=== PATIENT | female | born 1985 | race Caucasian/White ===

== ENCOUNTER → 2017-01-28 | Outpatient (CLI) | payer BC | LOC: RAD 07:18 | PROVIDERS: ATTEND Specialist | DX: R51 Headache (principal) | CPT/HCPCS: 70450 ==

== ENCOUNTER 2018-01-17 19:39 | Emergency (ER) | payer BC ==
[2018-01-17 20:07] VITALS: BP 102/68
[2018-01-17] MEDS ORDERED: IBUPROFEN 800 MG TABLET PO ONE (20:08)
--- NOTE | 2018-01-17 20:17 | ER Document Report ---
HPI - HPI Patient complains to provider of: Scratchy throat fever body aches chills Onset: Yesterday Onset/Duration: Gradual Pain Level: 4 Context: 32-year-old female developed scratchy throat, fever, body aches, headache, chills, fatigue, dizziness since yesterday evening. She was exposed to influenza B. She did not get a flu shot. No runny nose or cough. No urinary frequency or urgency. No vaginal discharge. No abdominal pain. She does have some low back pain. Associated Symptoms: None Exacerbated by: Denies Relieved by: Denies Similar symptoms previously: No Recently seen / treated by doctor: No - ROS ROS below otherwise negative: Yes Systems Reviewed and Negative: Yes All other systems reviewed and negative - REPRODUCTIVE Reproductive: REPORTS: : Past Medical History - General Information source: Patient - Social History Smoking Status: Never Smoker Frequency of alcohol use: None Drug Abuse: None Lives with: Family Family History: Reviewed & Not Pertinent - Medical History Medical History: Negative Past Surgical History: Reports: Hx Gynecologic Surgery - Immunizations Immunizations up to date: Yes Hx Diphtheria, Pertussis, Tetanus Vaccination: Yes Vertical Provider Document - CONSTITUTIONAL Agree With Documented VS: Yes Exam Limitations: No Limitations - INFECTION CONTROL TRAVEL OUTSIDE OF THE [place] IN LAST 30 DAYS: No - HEENT HEENT: Pharyngeal Erythema - minimal. negative: Conjuctival Injection, Tympanic Membrane Red - NECK Neck: Supple. negative: Lymphadenopathy-Left, Lymphadenopathy-Right - RESPIRATORY Respiratory: Breath Sounds Normal, No Respiratory Distress - CARDIOVASCULAR Cardiovascular: Regular Rate, Regular Rhythm - GI/ABDOMEN Gastrointestinal: Abdomen Soft, Abdomen Tender - suprapubic, Normal Bowel Sounds - BACK Back: Normal Inspection. negative: CVA Tenderness-Right, CVA Tenderness-Left Notes: non tender - MUSCULOSKELETAL/EXTREMETIES Musculoskeletal/Extremeties: MAEW - NEURO Level of Consciousness: Awake, Alert - DERM Integumentary: Warm, Dry, No Rash Course - Re-evaluation Re-evalutation: 01/17/18 20:28 apical pulse 96 01/17/18 20:59 Rapid strep is negative, urinalysis is negative and patient still denies a cough. No travel outside the [place], she works at [employer] but is off tomorrow. 01/17/18 21:00 Discharge - Discharge Clinical Impression: Fever, Myalgia, Dizziness Condition: Good Disposition: HOME, SELF-CARE Instructions: Acetaminophen, Use of [id number] Ibuprofen ([facility]), Fever ( [facility]), Viral Syndrome ([facility]) Additional Instructions: Drink plenty of fluids Rest Work note Tylenol Motrin Return to the emergency room if symptoms worsen Forms: Return to Work Referrals: DEAN HERNADEZ MD [Primary Care Provider] - Follow up as needed
[2018-01-17 20:33] LABS: APPEARANCE,URINE CLEAR; BILIRUBIN,URINE NEGATIVE (NEGATIVE); COLOR,URINE YELLOW; GLUCOSE, URINE NEGATIVE (NEGATIVE); KETONES,URINE NEGATIVE (NEGATIVE); LEUKOCYTE ESTERASE,URINE NEGATIVE (NEGATIVE); NITRITE,URINE NEGATIVE (NEGATIVE); PROTEIN,URINE NEGATIVE (NEGATIVE); URINE SPECIFIC GRAVITY 1.005; UROBILINOGEN,URINE NEGATIVE mg/dL (<2.0)
== END 2018-01-17 21:04 | disposition home or self-care (01) ==
LOC: ER 19:39
DX: R50.9 Fever, unspecified (principal); M79.1 Myalgia; R51 Headache; R42 Dizziness and giddiness
CPT/HCPCS: 81001; 87070; 87086; 87880; 99283

== ENCOUNTER 2019-07-27 09:13 | Emergency (ER) | payer BC ==
[2019-07-27 10:19] LABS: ABSOLUTE LYMPHOCYTES (AUTO) 0.9 10^3/uL (0.5-4.7); ABSOLUTE MONOCYTES (AUTO) 0.4 10^3/uL (0.1-1.4); ABSOLUTE NEUT (AUTO) 4.7 10^3/uL (1.7-8.2); BASOPHILS % (AUTO) 0.3 % (0-2); EOSINOPHILS % (AUTO) 0.4 % (0-6); HEMATOCRIT 36.3 % (36.0-47.0); HEMOGLOBIN 12.5 g/dL (12.0-15.5); LYMPHOCYTES % (AUTO) 14.9 % (13-45); MEAN CORPUSCULAR HEMOGLOBIN 32.6 pg (27.0-33.4); MEAN CORPUSCULAR HGB CONC 34.4 g/dL (32.0-36.0); MEAN CORPUSCULAR VOLUME 95 fl (80-97); MONOCYTES % (AUTO) 5.8 % (3-13); PLATELET COUNT 161 10^3/uL (150-450); RED BLOOD COUNT 3.83 10^6/uL (3.72-5.28); RED CELL DISTRIBUTION WIDTH 12.8 % (11.5-14.0); SEGMENTED NEUTROPHILS % (AUTO) 78.6 % (42-78); TOTAL CELLS COUNTED % (AUTO) 100 %
[2019-07-27 10:27] LABS: APPEARANCE,URINE CLEAR; BILIRUBIN,URINE NEGATIVE (NEGATIVE); COLOR,URINE YELLOW; GLUCOSE, URINE NEGATIVE (NEGATIVE); KETONES,URINE NEGATIVE (NEGATIVE); LEUKOCYTE ESTERASE,URINE NEGATIVE (NEGATIVE); NITRITE,URINE NEGATIVE (NEGATIVE); PROTEIN,URINE NEGATIVE (NEGATIVE); URINE SPECIFIC GRAVITY 1.014; UROBILINOGEN,URINE NEGATIVE mg/dL (<2.0)
[2019-07-27 10:40] LABS: ACETAMINOPHEN < 10 ug/mL (10-30); ALBUMIN 4.2 g/dL (3.5-5.0); ALCOHOL < 10 mg/dL (NONE DETECTED); ALKALINE PHOSPHATASE 51 U/L (38-126); ANION GAP 8 (5-19); ASPARTATE AMINO TRANSFERASE 19 U/L (14-36); BILIRUBIN,DIRECT 0.2 mg/dL (0.0-0.4); BILIRUBIN,TOTAL 0.4 mg/dL (0.2-1.3); BLOOD UREA NITROGEN 10 mg/dL (7-20); CALCIUM 9.1 mg/dL (8.4-10.2); CARBON DIOXIDE 25 mmol/L (22-30); CHLORIDE 106 mmol/L (98-107); GLUCOSE 109 mg/dL (75-110); POTASSIUM 4.6 mmol/L (3.6-5.0); SALICYLATE < 1.0 mg/dL (2.0-20.0); TOTAL PROTEIN 7.3 g/dL (6.3-8.2)
[2019-07-27 10:45] LABS: URINE AMPHETAMINES SCREEN NEGATIVE; URINE BARBITURATES SCREEN NEGATIVE; URINE BENZODIAZEPINES SCREEN NEGATIVE; URINE COCAINE SCREEN NEGATIVE; URINE MARIJUANA (THC) SCREEN NEGATIVE; URINE METHADONE SCREEN NEGATIVE; URINE PHENCYCLIDINE SCREEN NEGATIVE
[2019-07-27] MEDS ORDERED: ACETAMINOPHEN 325 MG TABLET PO ONE ×2 (12:28→16:44)
[2019-07-27] MEDS ORDERED: CLONAZEPAM 1 MG TABLET PO PRN (14:32)
[2019-07-27] MEDS ORDERED: HALOPERIDOL 5 MG TABLET PO ONE (16:41)
--- NOTE | 2019-07-27 16:49 | ER Document Report ---
ED General - General TRAVEL OUTSIDE OF THE [place] IN LAST 30 DAYS: No - Related Data Home Medications: 1mg klonopin 4times daily. 160mg cymbalta daily <SUSIE JERNIGAN - Last Filed: 07/27/19 17:34> <KOURTNEY DESIR - Last Filed: 07/27/19 17:47> - General Chief Complaint: Psych Problem Stated Complaint: PSYCH EVAL/SUICIDAL IDEATION Time Seen by Provider: 07/27/19 12:31 Primary Care Provider: SANNA VENTURA MD [Primary Care Provider] - Follow up as needed - Related Data Allergies/Adverse Reactions: No Known Allergies Allergy (Verified 11/23/12 17:36) Past Medical History - Social History Smoking Status: Unknown if Ever Smoked Chew tobacco use (# tins/day): No Frequency of alcohol use: Occasional Drug Abuse: None Family History: Reviewed & Not Pertinent Patient has suicidal ideation: Yes Patient has homicidal ideation: No - Past Medical History Cardiac Medical History: Denies: Hx Coronary Artery Disease, Hx Heart Attack, Hx Hypertension Pulmonary Medical History: Denies: Hx Asthma, Hx Bronchitis, Hx COPD, Hx Pneumonia Neurological Medical History: Denies: Hx Cerebrovascular Accident, Hx Seizures Renal/ Medical History: Denies: Hx Peritoneal Dialysis Musculoskeletal Medical History: Denies Hx Arthritis Past Surgical History: Reports: Hx Gynecologic Surgery - Immunizations Immunizations up to date: Yes Hx Diphtheria, Pertussis, Tetanus Vaccination: Yes <SUSIE JERNIGAN - Last Filed: 07/27/19 17:34> Physical Exam - Vital signs Vitals: Temp Pulse Resp BP Pulse Ox 97.7 F 85 20 114/84 100 07/27/19 09:18 07/27/19 09:18 07/27/19 09:18 07/27/19 09:18 07/27/19 09:18 Course - Laboratory Result Diagrams: 07/27/19 09:57 07/27/19 09:57 <SUSIE JERNIGAN - Last Filed: 07/27/19 17:34> - Laboratory Result Diagrams: 07/27/19 09:57 07/27/19 09:57 <KOURTNEY DESIR - Last Filed: 07/27/19 17:47> - Vital Signs Vital signs: Temp Pulse Resp BP Pulse Ox 97.7 F 85 20 114/84 100 07/27/19 09:18 07/27/19 09:18 07/27/19 09:18 07/27/19 09:18 07/27/19 09:18 - Laboratory Laboratory results interpreted by me: 07/27/19 07/27/19 09:57 09:57 Seg Neutrophils % 78.6 H Salicylates < 1.0 L Acetaminophen < 10 L - Transfer of Care Notes: 07/27/19 16:45 I spoke with the patient for over 20 minutes with her good friend she wanted in the room as well patient says that her thoughts of harming herself including when looking at a bridge thinking of what if I were to jump off and then also what if I were to try to overdose on some medications that David resulted in knowing she would not follow through with this because she has children and would never leave them with a parent like this. She is been overwhelmed though with her [employer] increasing the Cymbalta and then she herself was given a supply of 1mg Klonopin tabs to take only as needed for severe anxiety but she has increased to 4 times a day as she is felt more anxious she says she is not really sleeping well usually she needs about 8 hours but does get getting about 5 she says she has not taken any other stimulants or diet pills she and I discussed specifically a plan for establishing some better mental health support once she is medically cleared in the ED and then psychiatry is reevaluated her she says she used to see a therapist regularly he then moved out of town but she is able to get in touch with her and feels that she can make a good referral for a new counselor for regular appointments I suggested that she really needs a psychiatrist to manage her medications psychotropic so they can be on top of these and not her [employer] only we discussed also that down falls of Klonopin and other drugs in that class and relying on those and (SUSIE JERNIGAN) Discharge <SUSIE JERNIGAN - Last Filed: 07/27/19 17:34> <KOURTNEY DESIR - Last Filed: 07/27/19 17:47> - Discharge Clinical Impression: Stress, Suicidal ideations Condition: Stable Disposition: HOME, SELF-CARE Additional Instructions: You have been evaluated by both medical and behavioral teams and have been deemed appropriate for discharge. Medication recommendations have been provided. The medication recommendations are as follows: Continue with Cymbalta 60MG daily for 5 days, and then decrease it to 30MG for 5 days, and then cease Cymbalta completely. Add Effexor 37.5MG 1 per day when you start taking 30MG of Cymbalta Add Buspar 5MG twice per day Reduce Klonipin to 0.5MG, only as needed You have been provided a community list of mental health resources. Please follow up with mental health providers of your choosing for medication management and mental health services. You have been provided with the contact information for mobile crisis, as needed. DEPRESSION: Your evaluation reveals that you have mental depression. While symptoms may be vague, they often include disturbance of sleep, fatigue, loss of appetite, and general loss of interest in life. While depression may be a side effect of drugs, or a reaction to a major change in your life, many cases have no known cause. If depression is acute, and related to a major loss in your life, you can expect it to clear completely with time. If you have been depressed a long time, are prone to repeated bouts of depression or low mood, or have been thinking of suicide, get help. Depression can be treated with anti-depressant medication and counselling. Long-term depression will often take a few weeks to clear, even with appropriate medication. Follow-up care is important. SUICIDAL IDEATION: Suicidal ideation is a common medical term for thoughts about suicide, which may be as detailed as a formulated plan, without the suicidal act itself. Although most people who undergo suicidal ideation do not commit suicide, some go on to make suicide attempts. The range of suicidal ideation varies greatly from fleeting to detailed planning, role playing, and unsuccessful attempts. While thoughts about suicide are common, most people do not carry out serious actions to commit suicide. Based upon your evaluation and discussion with you, we do not believe you are currently at risk to act upon your thoughts of suicide. You have agreed to return to the Emergency Department, at any time, if you feel inclined to act upon your suicidal thoughts. Anxiety The physician feels that some of your health problems are being caused by anxiety. Anxiety affects your health in many ways. Anxiety alone can cause palpitations, sweats, chest pains, abdominal pains, shortness of breath, and headaches. It contributes to ulcer disease, high blood pressure, irritable bowel syndrome, and has been shown to cause flare-ups of many other diseases. Anxiety is not a simple disorder to treat. If the anxiety is due to recent life stresses, you may simply need time to "work through" the changes. If the anxiety is due to an underlying unhappiness with yourself or due to psychiatric disturbance, professional help will be needed. Your physician can refer you for further help if needed. Anti-anxiety medication is occasionally given if the stress is acute or if you are having trouble sleeping. Chronic or frequent use of these medications is not a good idea because the body becomes reliant on it, preventing you from dealing with life's normal stresses. FOLLOW-UP CARE: If you have been referred to a physician for follow-up care, call the physicians office for an appointment as you were instructed or within the next two days. If you experience worsening or a significant change in your symptoms, notify the physician immediately or return to the Emergency Department at any time for re-evaluation. Prescriptions: Buspirone HCl [Buspar 5 mg Tablet] 1 tab PO DAILY 7 Days #7 tab Duloxetine HCl [Cymbalta] 30 mg PO DAILY 5 Days #5 cap Duloxetine HCl [Cymbalta 30 mg Capsule.dr] 60 mg PO DAILY 5 Days #5 tab Venlafaxine HCl [Effexor] 37.5 mg PO DAILY 5 Days #5 tablet Clonazepam [Klonopin 0.5 mg Tablet Rapid Dissolve] 0.5 mg PO TID PRN 7 Days #21 tab.rapdis PRN Reason: Anxiety/Agitation Referrals: SANNA VENTURA MD [Primary Care Provider] - Follow up as needed [facility] [Outside] - Follow up as needed
--- NOTE | 2019-07-27 17:14 | PSYCHOLOGICAL NOTE ---
Psych Note - Psych Note Date seen by psych provider: 07/27/19 Time seen by psych provider: 11:30 Psych Note: Reason for consult: SI Patient presents to ED via POV for SI. Patient reports experiencing several life stressors. 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 Patient is currently prescribed the following: Cymbalta 60MG Klonapin 1MG Patient stated she increased the dosage of her Cymbalta from 60MG to 120MG and Klonapin from 1MG daily to 1MG four times daily, approximately 2 weeks ago. Patient states she was informed by her provider to increase the dosage as needed. Patient stated she was engaged with mental health services until her therapist moved away. Patient stated being a good mom is my priority. Patient states she has little time for self-care. 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 Patient has specifically requested Haldol for a headache and a banana bag due to 10lb weight loss the last couple of days. Patient is alert and oriented to person, place, time and circumstance. Mood is euthymic with congruent affect as evidenced by smiling, laughing and engaging with clinician. At appropriate times, patient was tearful as she described emotions related to cumulative stress of current stressors. Patient denies c urrent suicidal and homicidal ideation. Delusions are absent and behavior is congruent with an intact reality based presentation (i.e. organized and linear thought processes). There is no observed behavior that suggests patient is responding to internal stimuli. Eye contact is fair. Conversational speech is within normal rate, tone, and prosody. Intellectual ability appears to be within average range. Attention and concentration are fair. Insight, judgment, and impulse control are poor. DSM Diagnosis: Per report, Depression Per report, Generalized Anxiety Disorder Medication recommendations per [facility] contracted psychiatrist Dr. Slade GALINDO is as follows: Change Cymbalta in the following manner. Continue to take 60MG for 5 days, then for the next 5 days decrease Cymbalta dose to 30MG Add Effexor 37.5MG, one time daily when you begin taking Cymbalta 60MG. Add Buspar 5MG, two times per day Change Klonapin to 1MG, only as needed Impression/Plan: Patient is cleared from acute psychiatric services. Patient does not meet IVC criteria per [place] GS 122C. At this time patient is demonstrating insight and judgment into their current situation and is able to thoughtfully and purposefully be a collaborator in their plan of care. Patient denies auditory and visual hallucinations. Patient denies current suicidal and homicidal ideations. Medication recommendations have been provided. Patient expressed some hesitation at being discharged. Patient requested to get some sleep here, and then reassess concerns. Later, patient expressed a desire to go home. It is recommended that patient stay overnight voluntarily, if needed. Patients brother is traveling from [place] to provide assistance. Patients best friend has also agreed to provide assistance, as needed. Dr. Sullivan was consulted on the care and management of this patient; attending physician is in agreement with recommendations and disposition.
[2019-07-27] MEDS ORDERED: BUSPIRONE HCL 10 MG TABLET PO SCH (18:00)
--- NOTE | 2019-07-27 18:14 | EKG REPORT ---
SEVERITY:- NORMAL ECG - SINUS RHYTHM : Confirmed by: Rashawn Lanza MD 27-Jul-2019 18:13:40
[2019-07-27 18:48] VITALS: BP 102/67
[2019-07-28] MEDS ORDERED: DULOXETINE HCL 30 MG CAPSULE.DR PO SCH (09:00)
== END 2019-07-27 18:48 | disposition home or self-care (01) ==
LOC: ER 09:13 → EEVIPCON 09:13 → ER 18:48
DX: F43.9 Reaction to severe stress, unspecified (principal); R45.851 Suicidal ideations; Z79.899 Other long term (current) drug therapy
CPT/HCPCS: 36415; 80053; 80307; 81001; 81025; 85025; 93005; 93010; 99285

== ENCOUNTER 2019-08-02 02:22 | Emergency (ER) | payer BC ==
[2019-08-02 02:45] VITALS: BP 117/84
[2019-08-02] MEDS ORDERED: ACETAMINOPHEN 325 MG TABLET PO ONE (02:51)
== END 2019-08-02 04:10 | disposition left against medical advice (07) ==
LOC: ER 02:22
DX: Z53.21 Procedure and treatment not carried out due to patient leaving prior to being seen by health care provider (principal)